=== PATIENT | female | born 1980 | race Hispanic/Latino ===

== ENCOUNTER 2021-02-26 08:24 | Emergency (ER) | payer OTHER ==
[~2021-02-26] VITALS: Ht 157.5 cm; Wt 81.6 kg
[2021-02-26 08:42] LABS: BASOPHILS % (AUTO) 0.5 % (0.0-5.0); EOSINOPHILS % (AUTO) 0.6 % (0.0-8.0); HEMATOCRIT 33.1 % (36-48); LYMPHOCYTES % (AUTO) 26.8 % (21.0-51.0); MEAN CORPUSCULAR HEMOGLOBIN 22.9 pg (27.0-33.0); MEAN CORPUSCULAR HGB CONC 29.9 g/dL (32.0-36.0); MEAN CORPUSCULAR VOLUME 76.6 fL (79-99); MONOCYTES % (AUTO) 5.9 % (3.0-13.0); NEUTROPHILS % (AUTO) 65.7 % (40.0-77.0); PLATELET COUNT (AUTO) 572 K/uL (130-400); RED BLOOD CELL COUNT(AUTO) 4.32 MIL/uL (4.00-5.50); RED CELL DISTRIBUTION WIDTH 17.7 % (11.0-15.5)
[2021-02-26 08:51] LABS: CREATININE 0.6 mg/dL (0.5-1.5)
[2021-02-26 08:53] LABS: INR 1.01 (0.85-1.15)
[2021-02-26 08:58] LABS: ALBUMIN 3.6 g/dL (3.5-5.0); BILIRUBIN,TOTAL 0.1 mg/dL (0.2-1.0); TOTAL PROTEIN, SERUM 8.3 g/dL (6.0-8.3)
[2021-02-26 09:02] LABS: B-TYPE NATRIURETIC PEPTIDE 9 pg/mL (0-100)
[2021-02-26 09:05] LABS: APPEARANCE,URINE Clear (CLEAR); BILIRUBIN,URINE Negative (NEGATIVE); COLOR,URINE Yellow (YELLOW); GLUCOSE, URINE (UA) Negative (NEGATIVE); KETONES,URINE Negative (NEGATIVE); LEUKOCYTE ESTERASE ,URINE Negative (NEGATIVE); NITRATE,URINE Negative (NEGATIVE); OCCULT BLOOD,URINE Negative (NEGATIVE); PROTEIN,URINE Negative (NEGATIVE)
[2021-02-26] MEDS ORDERED: KETOROLAC 30MG VIAL (30MG/ML) ONE (09:18)
[2021-02-26] MEDS ORDERED: ORPHENADRINE CITRATE 30 MG/ML ML ONE (09:18)
[2021-02-26] MEDS ORDERED: 0.9%NACL 1000ML 1,000 ML IV ONE (09:30)
[2021-02-26] MEDS ORDERED: KETOROLAC 30MG VIAL (30MG/ML) IV ONE (09:30)
[2021-02-26] MEDS ORDERED: ORPHENADRINE CITRATE 30 MG/ML ML IV ONE (09:30)
[2021-02-26] MEDS ORDERED: CYCL-309 PO (10:47)
[2021-02-26] MEDS ORDERED: MELO7.5T12 PO (10:47)
[2021-02-26 11:04] VITALS: BP 125/81
== END 2021-02-26 11:05 | disposition home or self-care (01) ==
LOC: EDH 08:24
DX: F43.9 Reaction to severe stress, unspecified (principal); R07.89 Other chest pain; M62.838 Other muscle spasm
CPT/HCPCS: 36415; 71045; 80053; 81003; 81025; 82550; 83880; 84484; 85025; 85610; 85730; 93005 ×2; 96361; 96374; 96375; 99285; J1885; J2360; J7030

== ENCOUNTER 2022-06-24 19:32 | Emergency (ER) | payer OTHER ==
[~2022-06-24] VITALS: Ht 152.4 cm; Wt 81.6 kg
[~2022-06-24 19:32] MED LIST: CYCL-309 PO; MELO7.5T12 PO
[2022-06-24 20:06] LABS: BASOPHILS % (AUTO) 0.4 % (0.0-5.0); EOSINOPHILS % (AUTO) 1.3 % (0.0-8.0); HEMATOCRIT 31.1 % (36-48); LYMPHOCYTES % (AUTO) 29.4 % (21.0-51.0); MEAN CORPUSCULAR HEMOGLOBIN 21.8 pg (27.0-33.0); MEAN CORPUSCULAR HGB CONC 30.2 g/dL (32.0-36.0); MONOCYTES % (AUTO) 5.1 % (3.0-13.0); NEUTROPHILS % (AUTO) 63.4 % (40.0-77.0); PLATELET COUNT (AUTO) 577 K/uL (130-400); RED BLOOD CELL COUNT(AUTO) 4.32 MIL/uL (4.00-5.50); RED CELL DISTRIBUTION WIDTH 18.8 % (11.0-15.5); WHITE BLOOD COUNT (AUTO) 10.1 K/uL (4.8-10.8)
[2022-06-24 20:16] LABS: CREATININE 0.7 mg/dL (0.5-1.5); POTASSIUM 3.8 mmol/L (3.5-5.1)
[2022-06-24 20:21] LABS: ALBUMIN 3.6 g/dL (3.5-5.0); TOTAL PROTEIN, SERUM 8.2 g/dL (6.0-8.3)
[2022-06-24] MEDS ORDERED: IOHEXOL 350 MG/ML 100ML INFUS..BTL IV ONE (20:21)
[2022-06-24] MEDS ORDERED: CYCL-309 PO (21:45)
[2022-06-24] MEDS ORDERED: IBUP-1493 PO (21:45)
[2022-06-24 21:59] VITALS: BP 144/82
[2022-06-24] MEDS ORDERED: ACETAMINOPHEN 325 MG TAB PO ONE (22:00)
[2022-06-25] MEDS ORDERED: DIPH-1242 PO (19:06)
[2022-06-25] MEDS ORDERED: PRED20TA3 PO (19:06)
[2022-06-25] MEDS ORDERED: ALBU1.252 IH (19:06)
== END 2022-06-24 22:01 | disposition home or self-care (01) ==
LOC: EDH 19:32
DX: M62.838 Other muscle spasm (principal); R07.89 Other chest pain; Z90.49 Acquired absence of other specified parts of digestive tract; V89.2XXA Person injured in unspecified motor-vehicle accident, traffic, initial encounter; Y93.89 Activity, other specified; Y92.89 Other specified places as the place of occurrence of the external cause; Y99.8 Other external cause status
CPT/HCPCS: 99285; 70450; 80053; 84703; 85025; 36415; 72125; 71270; 74178; 93005; Q9967